=== PATIENT | male | born 1955 | race Two or more races ===

== ENCOUNTER 2020-12-22 02:54 | Emergency (ER) | payer OTHER ==
[~2020-12-22] VITALS: Ht 172.7 cm; Wt 70.6 kg
[2020-12-22] MEDS ORDERED: IBUPROFEN 800 MG TABLET ONE (03:23)
--- NOTE | 2020-12-22 03:27 | NUR ---
PT JAMAL FOR LEFT SHOULDER PAIN. PT MEDICATED FOR PAIN. VSS. CALL LIGHT IN REACH
[2020-12-22] MEDS ORDERED: IBUPROFEN 800 MG TABLET PO ONE (03:30)
[2020-12-22 03:45] VITALS: BP 143/53
--- NOTE | 2020-12-22 04:21 | NUR ---
Patient given discharge instructions and they have confirmed that they understand the instructions. Patient ambulatory with steady gait.
== END 2020-12-22 04:27 | disposition home or self-care (01) ==
LOC: ED 03:54
DX: G89.11 Acute pain due to trauma (principal); M25.512 Pain in left shoulder; X58.XXXA Exposure to other specified factors, initial encounter; Y93.89 Activity, other specified; Y92.410 Unspecified street and highway as the place of occurrence of the external cause; Y99.8 Other external cause status
CPT/HCPCS: 99283